=== PATIENT | female | born 1960 | race Caucasian/White ===

== ENCOUNTER → 2016-03-15 | Outpatient (CLI) | payer OTHER ==
--- NOTE | 2016-03-15 10:14 | MAM ---
EXAM DESCRIPTION: MAMMO BREAST SCREENING BILATERAL CAD, images were reviewed with CAD technology, R2 computer-aided detection. CLINICAL HISTORY: [facility] [employer]. COMPARISON: 2010. FINDINGS: Routine views are obtained. Scattered glandular pattern with nodularity, stable. No dominant mass, architectural distortion or clustered microcalcification.. IMPRESSION: Benign exam. BIRAD CATEGORY: 2 BENIGN RECOMMENDATIONS: FOLLOW-UP: Routine screening mammogram in one year. According to the [employer], yearly mammograms are recommended starting at age 40 and continuing as long as a woman is in good health. Any breast change noted on a breast self-exam should be reported promptly to the patient's healthcare provider. Breast MRI is recommended for women with an approximately 20-25% or greater lifetime risk of breast cancer, including women with a strong family history of breast or ovarian cancer and women who have been treated for Hodgkin's disease. Electronically signed by: Naheed Erickson 03/15/2016 10:13
== END ==
LOC: MAMMO 08:46
PROVIDERS: ATTEND Obstetrics & Gynecology
DX: Z12.31 Encounter for screening mammogram for malignant neoplasm of breast (principal)
CPT/HCPCS: 77052; G0202

== ENCOUNTER 2017-09-05 05:23 | Emergency (ER) | payer OTHER ==
[2017-09-05 05:35] VITALS: TEMP 97.3
--- NOTE | 2017-09-05 06:06 | ED.PDOC ---
History of Present Illness - General Source: patient Exam Limitations: no limitations - History of Present Illness Initial Comments: the patient is a 57-year-old female presenting to the emergency room secondary to symptoms of palpitations. she woke up at 340 this morning to get ready for work and woke up with the palpitations. They did not cause any chest pain or shortness of breath. She did check her pulse and it was at 146. She has had palpitations for a while and had a implanted recorder placed back in May. She reports that she only gets 3 or 4 episodes a year. This will be the first larger episode that should be recorded. She reports that it's she noticed it started around 3:40 AM metabolic time she got here it had largely resolved. Upon arrival here and being placed on telemetry monitoring she has sinus tachycardia at 110 bpm with PVCs every fourth or fifth beat and these resolved quickly.her pressurised container filler is Dr. Garrett.the implanted device was placed in [place]. she reports she has no history of any congestive heart failure or coronary artery disease. No history of any significant valvular disease. And it did not cause her any problem aside from some tremor's morning when she had it. She was not weak. No syncope or near syncope. No headache. She never did have any chest pain.no history of any gastritis, esophagitis or esophageal dysmotility issues. Timing/Duration: 1 hour Severity: mild Improving Factors: nothing Worsening Factors: nothing Associated Symptoms: denies symptoms <Aram Vang L - Last Filed: 09/05/17 06:50> <Mg Cali - Last Filed: 09/05/17 09:46> - General Chief Complaint: Cardiovascular Problem Stated Complaint: irregular heartbeat Time Seen by Provider: 09/05/17 05:46 - History of Present Illness Allergies/Adverse Reactions: Allergies Codeine Allergy (Verified 09/05/17 05:35) Home Medications: Ambulatory Orders Atorvastatin Calcium [Lipitor] 40 mg PO DAILY 09/05/17 Diltiazem HCl Coated Beads [Diltiazem HCl ER] 120 mg PO DAILY 09/05/17 Losartan Potassium & Hydrochlo [Losartan Potassium/Hydroc 100-25 mg] 1 tab PO DAILY 09/05/17 Review of Systems - Review of Systems Constitutional: States: no symptoms reported EENTM: States: no symptoms reported Respiratory: States: no symptoms reported Cardiology: States: palpitations. Denies: chest pain, edema, syncope Gastrointestinal/Abdominal: States: no symptoms reported Genitourinary: States: no symptoms reported Musculoskeletal: States: no symptoms reported Skin: States: no symptoms reported Neurological: States: tremors Endocrine: States: no symptoms reported Hematologic/Lymphatic: States: no symptoms reported All other Systems: No Change from Baseline <TajFaviancarmita Fraire - Last Filed: 09/05/17 06:50> Past Medical History (General) - Patient Medical History Hx Seizures: No Hx Stroke: No Hx Dementia: No Hx Asthma: No Hx of COPD: No Hx Cardiac Disorders: Yes - irregular heartbeat Hx Congestive Heart Failure: No Hx Pacemaker: No Hx Hypertension: Yes Hx Thyroid Disease: No Hx Diabetes: No Hx Gastroesophageal Reflux: No Hx Renal Disease: No Hx Cancer: No Hx of HIV: No Hx Hepatitis C: No Hx MRSA: No Surgical History: no surgical history - Vaccination History Hx Tetanus, Diphtheria Vaccination: No Hx Influenza Vaccination: No - Social History Hx Tobacco Use: No Hx Alcohol Use: Yes - social <Aram Vang - Last Filed: 09/05/17 06:50> Family Medical History - Family History Mother Family History: Unknown <TajFaviancarmita Fraire - Last Filed: 09/05/17 06:50> Physical Exam - Physical Exam General Appearance: Alert, Anxious, No apparent distress Eye Exam: bilateral normal Ears, Nose, Throat: hearing grossly normal, normal ENT inspection, normal pharynx Neck: full range of motion, supple, normal inspection Respiratory: lungs clear, normal breath sounds, no respiratory distress, no accessory muscle use Cardiovascular/Chest: normal peripheral pulses, regular rate, rhythm, no edema Peripheral Pulses: radial,right: 2+, radial,left: 2+, dorsalis pedis,right: 2+, dorsalis pedis,left: 2+ Gastrointestinal/Abdominal: non tender, soft Rectal Exam: deferred Back Exam: no CVA tenderness, no vertebral tenderness Neurologic: drill presser II-XII nml as tested, alert, normal mood/affect, oriented x 3 Skin Exam: normal color Comments: Vital Signs - 24 hr 09/05/17 09/05/17 05:29 05:37 Temperature 97.3 F L Pulse Rate [ 109 H 72 monitor] Respiratory 16 Rate Blood Pressure 150/85 [Left Arm] O2 Sat by Pulse 100 Oximetry <Aram Vang - Last Filed: 09/05/17 06:50> Progress - Progress Progress: 09/05/17 06:08 the patient is a 57-year-old female presenting to the emergency room secondary to palpitations with associated tachycardia this morning starting at home. This had largely resolved by the time she arrived here. She did have some mild sinus tachycardia with fairly frequent PVCs upon arrival here that quickly resolved. Laboratory work is being sent off to make sure we're not missing significant congestive heart failure or a otherwise silent myocardial infarction. She is being placed on telemetry monitoring. She will be allowed to have a dose of her diltiazem. We will contact her pressurised container filler office during business hours to see if we can arrange for an expedited read of her implanted recorder assuming the above workup turns out well. She will need to be monitored here for a little while. She does not appear to be any distress currently. No additional medications are being given at this point. EKG is currently reassuring. - Results/Orders Results/Orders: EKG shows normal sinus rhythm at a rate of 100 bpm. Mild right axis deviation. No acute ST segment changes concerning for ischemia. Corrected QT interval is within normal limits. <Aram Vang - Last Filed: 09/05/17 06:50> - Progress Progress: 09/05/17 09:32 Discuss all test results -ekg.CXR,Blood work and told her about low potassium and magnesium -she was given initial dose of -K+ tablet and MG ++ IV here in ER; also tried calling up her pressurised container filler in his [place] office 2 xs but no call back.Since she is on loop recorder all her heart activites were already recorded w/c was explained to patient and her pressurised container filler will review those recordings .Patient stated that she had this palpitations for the last 4 years already the reason she was placed on the recorder. - Results/Orders Results/Orders: 09/05/17 06:12 Telemetry .CONTINUOUS UA [URINALYSIS] Stat 09/05/17 06:15 EKG STAT 09/05/17 08:46 URINALYSIS Stat 09/05/17 Breakfast Regular Diet Laboratory Results - last 24 hr 09/05/17 09/05/17 09/05/17 06:15 06:15 06:15 WBC 7.2 RBC 4.00 L Hgb 12.6 Hct 37.4 MCV 93.5 MCH 31.5 H MCHC 33.8 RDW 13.2 Plt Count 234 MPV 9.3 Absolute Neuts (auto) 3.60 Absolute Lymphs (auto) 2.50 Absolute Monos (auto) 0.70 Absolute Eos (auto) 0.30 Absolute Basos (auto) 0.10 Neutrophils % 50.8 Lymphocytes % 34.9 Monocytes % 9.6 H Eosinophils % 4.0 Basophils % 0.7 PT 11.2 INR 0.970 PTT (SP) 30.5 D-Dimer, Quantitative < 230 Sodium 139 Potassium 3.0 L Chloride 102 Carbon Dioxide 27 Anion Gap 13.0 BUN 20 H Creatinine 0.73 BUN/Creatinine Ratio 27.4 H Random Glucose 129 H Serum Osmolality 281.8 Calcium 9.4 Magnesium 1.7 L Total Bilirubin 0.5 AST 21 ALT 19 Alkaline Phosphatase 54 Creatine Kinase 78 CK-MB (CK-2) 0.9 CK-MB (CK-2) % Not Reportable Troponin I < 0.02 B-Natriuretic Peptide 14.6 Serum Total Protein 7.4 Albumin 4.0 Globulin 3.4 Albumin/Globulin Ratio 1.2 TSH 3.56 - EKG/XRAY/CT EKG: Sinus, Tachy, no ST T wave changes Comments: HR-100 XRAY: chest - no acute findings <Mg Cali R - Last Filed: 09/05/17 09:46> Departure - Departure Diet: regular diet Activity: increase activity as tolerated <Aram Vang L - Last Filed: 09/05/17 06:50> - Departure Time of Disposition: 09:38 <Mg Cali - Last Filed: 09/05/17 09:46> - Departure Clinical Impression: Heart palpitations, Hypomagnesemia, Diuretic-induced hypokalemia Disposition: Discharge to Home or Self Care Condition: Fair Departure Forms: ED Discharge - Pt. Copy, Patient Portal Self Enrollment Instructions: Palpitations (DC) Referrals: Bautista Malagon III, MD [Primary Care Provider] - 1-2 Weeks Home Medications: Ambulatory Orders Atorvastatin Calcium [Lipitor] 40 mg PO DAILY 09/05/17 Diltiazem HCl Coated Beads [Diltiazem HCl ER] 120 mg PO DAILY 09/05/17 Losartan Potassium & Hydrochlo [Losartan Potassium/Hydroc 100-25 mg] 1 tab PO DAILY 09/05/17 Additional Instructions: Continue with all home meds;Keep appointment with Dr. Doshi and call up office if they could see you earlier;Return to ER as needed May take (over the counter )potassium tablet once daily and Mg -Ox- once daily
--- NOTE | 2017-09-05 06:56 | RAD ---
Examination: XR CHEST 2 VIEWS dated 09/05/2017 6:12 AM CDT History: palpitations Comparison: 07/26/2013 Technique: 2 views of the chest Findings: The lungs are clear bilaterally. No pneumothorax or pleural effusion. The cardiomediastinal silhouette is within normal limits. Impression: No acute findings Electronically signed by: Cam Lan MD 09/05/2017 6:54 AM CDT
[2017-09-05] MEDS ORDERED: POTASSIUM CHLORIDE 20 MEQ TAB PO ONE (07:17)
[2017-09-05] MEDS ORDERED: MAGNESIUM SULFATE PREMIX 2GM 2 GM in PREMIX BAG 1 BAG IVPB ONE (07:18)
[2017-09-05] MEDS ORDERED: MAGNESIUM SULFATE PREMIX 2GM 50 ML IVPB ONE (07:28)
[2017-09-05 09:57] VITALS: BP 114/72; O2SAT 95
== END 2017-09-05 09:58 | disposition home or self-care (01) ==
LOC: ER 05:23
DX: R00.2 Palpitations (principal); E83.42 Hypomagnesemia; E87.6 Hypokalemia; T50.2X5A Adverse effect of carbonic-anhydrase inhibitors, benzothiadiazides and other diuretics, initial encounter; Z95.818 Presence of other cardiac implants and grafts; I10 Essential (primary) hypertension; I49.9 Cardiac arrhythmia, unspecified
CPT/HCPCS: 36415; 71046; 80053; 82550; 82553; 83735; 83880; 84443; 84484; 85025; 85379; 85610; 85730; 93005; J3475

== ENCOUNTER → 2018-03-05 | Outpatient (CLI) | payer OTHER ==
--- NOTE | 2018-03-06 14:52 | MAM ---
EXAM DESCRIPTION: 3D Screening BILATERAL : Digital Mammography. CLINICAL HISTORY: 57 years Female SCREENING . No complaints. No personal or family history of breast cancer. Childbirth. Postmenopausal. No HRT. Lifetime risk of developing breast cancer (Tyrer-Cuzick model)(%): . 10.7. COMPARISON: 2-D digital screening bilateral diagnostic study 03/15/2016. TECHNIQUE: Bilateral CC and MLO projection full-field images, digital tomosynthesis mammographic technique. Bilateral digital 2-D full-field MLO images. CAD not available for tomosynthesis or 2-D images. FINDINGS: The breast parenchymal density pattern is: Scattered areas of fibroglandular density. No skin thickening or nipple retraction. Bilateral solitary microcalcifications. Bilateral axillary lymph nodes. Bilateral intramammary lymph nodes. Bilateral fibroglandular nodularity. No new focal, stellate mass or density, focal asymmetry , and no suspicious microcalcifications bilaterally. Stable mammograms compared to prior study. Taking into account, differences in mammographic technique. IMPRESSION: Benign exam. BIRAD CATEGORY: 2 BENIGN FINDINGS. RECOMMENDATIONS: FOLLOW UP: Routine digital bilateral mammographic screening, one year interval from February 2018. Written communication explaining the IMPRESSION and follow-up, will be mailed to the patient and referring health care provider. According to the [employer], yearly mammograms are recommended starting at age 40 and continuing as long as a woman is in good health. Any breast change noted on a breast self-exam should be reported promptly to the patient's healthcare provider. Breast MRI is recommended for women with an approximately 20-25% or greater lifetime risk of breast cancer, including women with a strong family history of breast or ovarian cancer and women who have been treated for Hodgkin's disease. A negative mammographic report should not delay tissue diagnosis in patients with significant clinical history or physical findings. Extremely dense breast tissue limits the sensitivity of digital mammography. Electronically signed by: Quincy Farley MD 03/06/2018 9:44 AM [employer]
== END ==
LOC: MAMMO 08:30
PROVIDERS: ATTEND Obstetrics & Gynecology
DX: Z12.31 Encounter for screening mammogram for malignant neoplasm of breast (principal)

== ENCOUNTER → 2019-03-29 | Outpatient (CLI) | payer OTHER ==
--- NOTE | 2019-03-29 19:25 | US ---
US THYROID CLINICAL STATEMENT:58 years Female SINGLE NONTOXIC THYROID NODULE. No palpable mass. No prior thyroid surgery or therapy. COMPARISON: None TECHNIQUE: Transcutaneous scanning, grayscale and Doppler modes. FINDINGS: Size right thyroid lobe: 4.4 x 1.8 x 1.4 cm Size left thyroid lobe: 3.7 x 1.6 x 1.0 cm Size isthmus: 0.24 cm Estimated total number of nodules greater than or equal to 1 cm: 3. No large calcifications or distinct cysts in the thyroid gland. Nodule 1: Size: 1.5 x 1.3 x 0.6 cm Location: Right Mid Composition: solid or almost completely solid: 2 points. Partially vascular Echogenicity: hypoechoic: 2 points Shape: wider than tall: 0 points Margins: smooth: 0 points Echogenic foci: none: 0 points ACR Total Points: 4; ACR TI-RADS risk category: TR4 - moderately suspicious nodule. Nodule 2: Size: 1.0 x 0.8 x 0.5 cm Location: Right isthmus Composition: solid or almost completely solid: 2 points. Partially vascular Echogenicity: hypoechoic: 2 points Shape: wider than tall: 0 points Margins: smooth: 0 points Echogenic foci: none: 0 points ACR Total Points: 4; ACR TI-RADS risk category: TR4 - moderately suspicious nodule. Nodule 3: Size: 1.0 x 0.9 x 0.6 cm Location: Right Mid Composition: solid or almost completely solid: 2 points. Partially vascular. Echogenicity: hypoechoic: 2 points Shape: wider than tall: 0 points Margins: smooth: 0 points Echogenic foci: none: 0 points ACR Total Points: 4; ACR TI-RADS risk category: TR4 - moderately suspicious nodule. Nodule 4: Size: 0.9 x 0.8 x 0.4 cm Location: Right Lower Composition: spongiform: 0 points Echogenicity: hypoechoic: 2 points Shape: wider than tall: 0 points Margins: smooth: 0 points Echogenic foci: none: 0 points ACR Total Points: 2; ACR TI-RADS risk category: TR2 - nonsuspicious nodule. Small hypoechoic nodule with smooth margins which appears solid, in the upper left lobe measuring 4 x 4.3 mm, wider than tall. No dominant solid mass, no distinct cyst, no large calcifications in the surrounding soft tissues. IMPRESSION: 1. Nodule 1: ACR TI-RADS 2017 Category TR4. Recommend: Ultrasound-guided fine needle aspiration. Recommendations based upon [employer] Best Practice recommendations and ACR TI-RADS 2017 guidelines. Please see below*. 2. Nodule 2: ACR TI-RADS 2017 Category TR4. Recommend: Follow-up ultrasound in 1 year. 3. Nodule 3: ACR TI-RADS 2017 Category TR4. Recommend: Follow-up ultrasound in 1 year. 4. Nodule 4: ACR TI-RADS 2017 Category TR2. Recommend: No further follow-up. Soft tissue around the thyroid gland is unremarkable. *ACR TI-RADS 2017 Recommendations for imaging follow-up of nodules: TR1: No FNA or follow up TR2: No FNA or follow up TR3: FNA if >/= 2.5 cm, follow up if 1.5 - 2.4 cm in 1, 3, and 5 years TR4: FNA if >/= 1.5 cm, follow up if 1.0 - 1.4 cm in 1, 2, 3, and 5 years TR5: FNA if >/= 1.0 cm, follow up if 0.5 - 0.9 cm every year for 5 years ACR TI-RADS recommends that no more than two nodules with the highest ACR TI-RADS total point should be biopsied and no more than four nodules should be followed. These recommendations do not apply to patients with increased risk for thyroid cancer or patients with symptomatic thyroid disease. Electronically signed by: Quincy Farley MD 03/29/2019 7:23 PM [facility]
== END ==
LOC: US 09:01
PROVIDERS: ATTEND Family Medicine
DX: E04.2 Nontoxic multinodular goiter (principal)

== ENCOUNTER → 2019-08-29 | Outpatient (CLI) | payer OTHER ==
--- NOTE | 2019-09-02 14:12 | MAM ---
EXAM DESCRIPTION: 3D Screening BILATERAL : Digital Mammography. CLINICAL HISTORY: 59 years Female . SCREENING. No complaints. No personal or family history of breast cancer. Menarche age 12. Childbirth age 22. Menopause age unknown. No HRT. Benign left breast biopsy Lifetime risk of developing breast cancer (Tyrer-Cuzick model)(%): 8.5. COMPARISON: Bilateral screening digital breast tomosynthesis February 2018. 2-D digital screening bilateral mammography February 2016. TECHNIQUE: Bilateral CC and MLO projection full-field images, digital tomosynthesis mammographic technique. Bilateral digital 2-D full-field MLO images. CAD available for 2-D images. FINDINGS: The breast parenchymal density pattern is: Scattered areas of fibroglandular density. No skin thickening or nipple retraction. Bilateral intramammary lymph nodes. Vascular calcifications. Solitary microcalcifications. The other nodular densities more on the right breast No new focal, stellate mass or density, focal asymmetry , and no suspicious microcalcifications . Stable mammograms compared to prior study. IMPRESSION: Benign exam. BIRAD CATEGORY: 2 BENIGN FINDINGS. RECOMMENDATIONS: FOLLOW UP: Routine digital bilateral mammographic screening, one year interval from August 2019. Written communication explaining the IMPRESSION and follow-up, will be mailed to the patient and referring health care provider. According to the [employer], yearly mammograms are recommended starting at age 40 and continuing as long as a woman is in good health. Any breast change noted on a breast self-exam should be reported promptly to the patient's healthcare provider. Breast MRI is recommended for women with an approximately 20-25% or greater lifetime risk of breast cancer, including women with a strong family history of breast or ovarian cancer and women who have been treated for Hodgkin's disease. A negative mammographic report should not delay tissue diagnosis in patients with significant clinical history or physical findings. Extremely dense breast tissue limits the sensitivity of digital mammography. Electronically signed by: Quincy Farley MD 09/02/2019 2:11 PM CDT
== END ==
LOC: MAMMO 08:13
PROVIDERS: ATTEND Family Medicine
DX: Z12.31 Encounter for screening mammogram for malignant neoplasm of breast (principal)

== ENCOUNTER → 2020-03-04 | Outpatient (CLI) | payer BC | LOC: GMAL 10:50 | PROVIDERS: ATTEND Family Medicine | DX: D51.3 Other dietary vitamin B12 deficiency anemia (principal); I10 Essential (primary) hypertension; E78.2 Mixed hyperlipidemia; R53.82 Chronic fatigue, unspecified; E55.9 Vitamin D deficiency, unspecified ==

== ENCOUNTER → 2020-03-16 | Outpatient (CLI) | payer BC ==
--- NOTE | 2020-03-16 14:19 | US ---
EXAM DESCRIPTION: Liver: ULTRASOUND. CLINICAL HISTORY: ELEVATED LIVER FUNCTIONS COMPARISON: None. TECHNIQUE: Transabdominal scannin-dimensional and Doppler modes. FINDINGS: Gallbladder: normal size, shape, echogenicity; no intraluminal stones or sludge. No fluid around the gallbladder. No wall thickening. 2.4 mm. Non-tender with transducer pressure. Common bile duct: caliber 3.9 mm within normal limits. Liver: normal echogenicity; contour liver capsule smooth where seen. No fluid around the liver. Intrahepatic biliary ducts normal caliber. Doppler hepatopedal flow portal vein. 8.4 mm. Long axis right lobe 13.5 cm. Pancreas: normal size and echogenicity. Duct not seen. Right kidney: long axis measures 9.5 cm. Volume 149.4 ml. Cortical echogenicity is normal. Cortical thickness is normal. No echogenic stones; no hydronephrosis. Aorta proximal: 1.7 cm normal caliber. IMPRESSION: 1. Gallbladder and common bile duct unremarkable. Nontender. No ascites. Normal caliber of the abdominal aorta. 2. No sonographic abnormalities in the liver, pancreas, and right kidney. Electronically signed by: Quincy Farley MD 03/16/2020 2:18 PM [facility]
== END ==
LOC: US 08:15
PROVIDERS: ATTEND Family Medicine
DX: R94.5 Abnormal results of liver function studies (principal)